=== PATIENT | male | born 1970 | race Caucasian/White ===

== ENCOUNTER 2017-07-30 05:44 | Day surgery (SDC) | payer OTHER ==
[~2017-07-30] VITALS: Ht 182.9 cm; Wt 99.8 kg
--- NOTE | ~2017-07-30 | S ---
[facility] [place] [address] SURGICAL PATH RPT PROCEDURE Name: BABATUNDE YOUNG Room #: DEP [facility]..#: [id number] Admission: 07/30/17 Date of : 68 Discharge: 07/30/17 Report #: [id number] Path Case #: [id number] PATHOLOGY REPORT COLLECTION DATE: 07/30/2017 RECEIVED DATE: 07/30/2017 SUBMITTING PHYS: Dr. Neal Garcia OTHER PHYS: SPECIMEN(S) RECEIVED: A.Cord lipoma * * * * * * * * * * * * FINAL DIAGNOSIS: "Cord lipoma", excision: - Mature adipose tissue consistent with lipoma. - Vascularized fibroadipose connective tissue and skeletal muscle with reactive changes also present. (CLW:mml; 08/02/2017) PATHOLOGIST: Lizz Waston M.D. REPORT ELECTRONICALLY SIGNED BY: Lizz Watson M.D. DATE/TIME: 08/02/2017 21:25 * * * * * * * * * * * * GROSS PATHOLOGY: Received in formalin labeled "Babatunde Young and cord lipoma," are several pieces of fibro membranous and lobulated adipose tissue measuring 3.5 x 3.2 x 1.5 cm. No nodules or lesions are identified. Ager Operator tissue is submitted in cassette A1. (SWS; 07/30/2017) CLINICAL HISTORY: Hernia repair inguinal unilateral INITIAL CPT CODE(S): A; 71740 Professional services performed by [facility] at [facility] [address] [place] [address] Technical services performed by [facility] at [address] [place] [address], [facility] [address], [place] [address]. [facility] [address] [place] [address] SURGICAL PATH RPT PROCEDURE Name: BABATUNDE YOUNG Room #: DEP [facility] Matt#: [id number] Admission: 07/30/17 Date of : 68 Discharge: 07/30/17 Report #: [id number] Path Case #: [id number] [facility] [address] PHONE: [phone] DIRECTOR: Aramis Doty M.D. * * * END OF REPORT * * *
--- NOTE | ~2017-07-30 | O ---
[facility] [place] [address] OPERATIVE REPORT Name: BABATUNDE YOUNG Room #: DEP [facility]#: [id number] Admission: 07/30/17 Attend Phys: Neal Garcia MD Discharge: 07/30/17 Date of : 68 Report #: [id number] THIS REPORT FOR: //name// CC: Inna Garcia DATE OF SERVICE: 07/30/[address] Neal Garcia. PREOPERATIVE DIAGNOSIS: Right inguinal hernia. POSTOPERATIVE DIAGNOSES: Right inguinal hernia with a right cord lipoma. PROCEDURE: Right inguinal hernia repair with Prolene hernia system mesh and excision of right cord lipoma. SURGEON: Neal Garcia MD ANESTHESIA: General. DESCRIPTION OF PROCEDURE: The patient was brought to the operating room and placed on operative table in the supine position. Sequential compression devices were in place for DVT prophylaxis. There was no indication for preoperative antibiotics. The patient underwent a general LMA anesthesia and was prepped and draped in a sterile fashion. Skin and subcutaneous tissue was then infiltrated with 0.5% Marcaine. Right inguinal skin incision was then performed using #10 scalpel blade. Hemostasis obtained using electrocautery. Dissection was carried down through the subcutaneous tissue, the external oblique fascia, which was then incised with a knife and opened with the Metzenbaum scissors. The ilioinguinal nerve was identified, dissected free, injected with the local and preserved. The cord was then elevated and held into place with a Abdias drain. Cremasteric muscle fibers were then split in the direction of fibers using clamp and electrocautery. A cord lipoma was identified, dissected free, clamped, excised and tied with a 2-0 chromic tie and the cord lipoma and sent as specimen to pathology. The cord was inspected and there was an indirect inguinal hernia sac, which was dissected free and reduced through the internal ring. The floor was inspected and found to be intact. An extended Prolene hernia system mesh was then inserted through the internal ring and the underlay patch was then deployed in the preperitoneal space and the connector left in the internal ring. The overlay patch was then deployed in the inguinal canal and the mesh was secured superiorly at the pubic tubercle and at the connector using simple interrupted 2-0 Vicryl sutures. The mesh was split, wrapped around the cord, secured to the inguinal ligament with simple interrupted 2-0 Vicryl suture. The cord and ilioinguinal nerve were then returned to the canal intact. The external oblique fascia was then closed using [facility] [address] [place] [address] OPERATIVE REPORT Name: BABATUNDE YOUNG Room #: DEP [facility]#: [id number] Admission: 07/30/17 Attend Phys: Neal Garcia MD Discharge: 07/30/17 Date of : 68 Report #: [id number] running 2-0 Vicryl suture. Jamari's fascia was then closed using simple interrupted 2-0 chromic sutures and the skin then closed with a running 4-0 subcuticular Vicryl stitch. The wound was then dressed with Mastisol, 1/2-inch Steri-Strips cut in half, Telfa, 4 x 4 gauze, sponge and tape. The patient was then awakened from the general anesthesia and taken to recovery room in good condition. Estimated blood loss was approximately 5 mL and the patient tolerated procedure well. All sponge, lap and instrument counts correct times 2. <ELECTRONICALLY SIGNED> By: Neal Garcia MD 08/04/17 [id number] Neal Garcia MD /nt
[~2017-07-30 05:44] MED LIST: BAL B-1001 EACH PO; CENTRUM SILVER1 EAC4 PO; FISH OIL 1,001000 M2 PO; VITAMIN D1000 UNI1 PO
[2017-07-30 13:09] VITALS: BP 138/80
[2017-07-30] MEDS ORDERED: NORCO 5-325 TA1 EACH PO (15:38)
[2017-07-30 15:49] VITALS: BP 138/80
== END 2017-07-30 16:10 | disposition home or self-care (01) ==
LOC: OR 05:44 → TBA 05:44 → OR 12:05
DX: K40.90 Unilateral inguinal hernia, without obstruction or gangrene, not specified as recurrent (principal); D17.6 Benign lipomatous neoplasm of spermatic cord
CPT/HCPCS: 50010; 50101; 50386; 50417; 54111; 56524; 56526; 56528; 62110; 62900; 70005